=== PATIENT | male | born 1980 | race Caucasian/White ===

== ENCOUNTER 2025-04-07 14:11 | Inpatient (IN) | payer MEDICAID ==
[~2025-04-07] VITALS: Ht 180.3 cm; Wt 176.9 kg
[2025-04-07] MEDS ORDERED: ASPIRIN 325 MG TABLET ONE (14:50)
[2025-04-07] MEDS: ASPIRIN 325 MG TABLET PO ONE (14:52)
[2025-04-07 14:59] LABS: PLATELET COUNT (AUTO) 243 K/uL (150-450); RED BLOOD CELL COUNT(AUTO) 4.61 MIL/uL (4.5-6.0); RED CELL DISTRIBUTION WIDTH 14.6 % (11.5-15.0); WHITE BLOOD COUNT (AUTO) 9.2 K/uL (4.3-11.0)
[2025-04-07 15:06] LABS: CALCIUM, SERUM 9.1 mg/dL (8.5-10.1); CREATININE 0.7 mg/dL (0.6-1.3); SODIUM SERUM 141 mmol/L (136-145); UREA NITROGEN, BLOOD 8 mg/dL (7-18)
[2025-04-07] MEDS ORDERED: IOHEXOL-350 100 ML VIAL IV ONE (15:06)
[2025-04-07] MEDS ORDERED: CT SWABBABLE VALVE TRANS SET 1 EA INFUS.SET MC ONE (15:06)
[2025-04-07] MEDS ORDERED: IV NS 0.9% 250 ML IV ONE (15:06)
[2025-04-07 15:20] LABS: NT-PRO BNP 87 pg/mL (0-125)
[2025-04-07] MEDS ORDERED: ACETAMINOPHEN 325 MG TABLET PO PRN (16:30)
[2025-04-07] MEDS: NITROGLYCERIN 0.4 MG/TAB BOTTLE SL ONE (16:30)
[2025-04-07] MEDS ORDERED: MAGNESIUM HYDROXIDE 30 ML UDC PO PRN (16:30)
[2025-04-07] MEDS ORDERED: ONDANSETRON HCL/PF 4 MG/2 ML VIAL IVP PRN (16:30)
[2025-04-07] MEDS ORDERED: Z GUARD REMEDY 4 OZ OINT TP PRN (16:30)
[2025-04-07] MEDS ORDERED: MAG HYDROX/AL HYDROX/SIMETH 30 ML UDC PO PRN (16:30)
[2025-04-07] MEDS ORDERED: ALBU18HF2 IH (16:45)
[2025-04-07] MEDS ORDERED: ZEPBOUND SQ (16:45)
[2025-04-07 17:00] VITALS: O2SAT 97
[2025-04-07] MEDS ORDERED: HYDROCODONE/APAP 5/325MG TABLET PO PRN (18:00)
[2025-04-07] MEDS ORDERED: ALPRAZOLAM 0.25 MG TABLET PO PRN (18:00)
[2025-04-07 20:00] VITALS: BP 124/72; TEMP 97.5; O2SAT 96
[2025-04-07] MEDS: ATORVASTATIN 40 MG TABLET PO SCH (21:53)
[2025-04-08] VITALS: BP 134/82; TEMP 98.1; O2SAT 95
[2025-04-08 04:00] VITALS: BP 110/56; TEMP 97.7; O2SAT 97
[2025-04-08 06:33] LABS: PLATELET COUNT (AUTO) 236 K/uL (150-450); RED BLOOD CELL COUNT(AUTO) 4.32 MIL/uL (4.5-6.0); RED CELL DISTRIBUTION WIDTH 14.9 % (11.5-15.0); WHITE BLOOD COUNT (AUTO) 7.3 K/uL (4.3-11.0)
[2025-04-08 06:45] LABS: CALCIUM, SERUM 8.8 mg/dL (8.5-10.1); CREATININE 0.8 mg/dL (0.6-1.3); PHOSPHORUS 3.7 mg/dL (2.5-4.9); SODIUM SERUM 140.0 mmol/L (136-145); UREA NITROGEN, BLOOD 8.0 mg/dL (7-18)
[2025-04-08 06:46] LABS: LDL 124.0 mg/dL (0-99)
[2025-04-08 08:00] VITALS: BP 108/61; TEMP 97.7; O2SAT 96
[2025-04-08] MEDS: ASPIRIN 81 MG TAB.CHEW PO SCH (08:02)
[2025-04-08 12:00] VITALS: BP 138/79; TEMP 97.7; O2SAT 97
== END 2025-04-08 16:25 | disposition home or self-care (01) | DRG 47 ==
LOC: ER 14:15 → TELE 16:51
PROVIDERS: ADMIT Nurse Practitioner Acute Care; ATTEND Nurse Practitioner Acute Care
DX: G45.9 Transient cerebral ischemic attack, unspecified (principal); Z68.43 Body mass index [BMI] 50.0-59.9, adult; R07.89 Other chest pain; E66.01 Morbid (severe) obesity due to excess calories; R20.0 Anesthesia of skin; I10 Essential (primary) hypertension; E78.5 Hyperlipidemia, unspecified; F41.9 Anxiety disorder, unspecified; J45.909 Unspecified asthma, uncomplicated; Z79.82 Long term (current) use of aspirin; Z82.49 Family history of ischemic heart disease and other diseases of the circulatory system
CPT/HCPCS: 36415; 70496-TC; 70498-TC; 71045-TC; 80048-TC; 80061-TC; 83735-TC; 83880; 84100-TC; 84484-TC; 85025-TC; 87081-TC; 93307-TC; A4223; G0378; J7030; J7050; Q9967